=== PATIENT | female | born 1975 | race Caucasian/White ===

== ENCOUNTER 2017-04-29 09:51 | Outpatient (CLI) | payer MEDICAID ==
[~2017-04-29] VITALS: Ht 157.5 cm; Wt 73.6 kg
--- NOTE | ~2017-04-29 | OP ---
PATIENT NAME: MADHURI CHRISTIE MEDICAL RECORD: [id number] :[birth year] LOCATION:D.CAT ADMISSION DATE: SURGEON: TY VELAZQUEZ MD DATE OF OPERATION: 04/29/2017 PROCEDURES: 1. Left heart catheterization. 2. Selective coronary angiography. 3. Left ventriculogram. INDICATION: Chest pain compatible with angina. PROCEDURE IN DETAIL: After informed consent was obtained and after detailed explanation of risks, benefits as well as alternative therapies, the patient elected to proceed with angiogram and heart catheterization. The right femoral area was prepped and draped in normal sterile fashion. Right femoral artery was cannulated via modified Seldinger technique with placement of 6-Nauruan sheath. All catheters exchanged through this sheath. FINDINGS: The left ventriculogram was performed in the standard 30-degree DOLAN view reveals good cardiac wall motion throughout all segments. Overall ejection fraction estimated at 60%. SELECTIVE CORONARY ANGIOGRAPHY: Left main, left anterior descending, left circumflex and right coronary are all smooth-walled vessels with no angiographic evidence of coronary artery disease. OVERALL IMPRESSION: 1. No angiographic evidence of coronary artery disease. 2. Normal left heart pressures. 3. Normal left ventricular systolic function. Chest pain is noncardiac in etiology. No further cardiac workup needs to be ascertained. TRANSINT:[id number] Voice Confirmation ID: [id number] DOCUMENT ID: [id number] TY VELAZQUEZ MD at 1324 CC: [id number] DICTATION DATE: 04/29/17 1443 FLARE WORKER: 04/29/17 1501 DEP CLI 04/29/17 [id number] [place] [address]
--- NOTE | ~2017-04-29 | HEMODYNAMI ---
PATIENT:MADHURI CHRISTIE MEDICAL RECORD: [id number] : 79 LOCATION:DRoxanaCAT ADMISSION DATE: 04/29/17 Generatedon:04/29/201714:46 Patient name: MDAHURI CHRISTIE Patient #: [id number] SSN: D OB: 1975 Date of study: 04/29/2017 Page: Of Hemodynamic Procedure Report Patient Data Patient Demographics Procedure consent was obtained First Name: MADHURI Gender: Female Last Name: SHAHNAZ : 1975 Middle Initial: M Age: 41 year(s) Patient #: [id number] Race: Unknown Additional ID: [id number] Contact details Address: [address] [place] [address] State: [facility] Zip code: [address] Past Medical History Allergies Allergen Reaction Date Comments Reported Other allergy 04/29/2017 CEPHALEXIN, DOXYCYCLINE Admission Admission Data Admission Date: 04/29/2017 Admission Time: 9:51 Height (in.): 5.2 BSA: 0.29 (m2) Height (cm.): 13.21 BMI: 4160.18 (kg/m2) Weight (lbs.): 160 Weight (kg.): 72.57 Lab Results Lab Result Date: 04/29/2017 Lab Result Time: 0:00 Biochemistry Name Units Result Min Max BUN mg/dl 9 --(*---)-- 7 18 Creatinine mg/dl 0.6 --(*---)-- 0.6 1.3 CBC Name Units Result Min Max Hemoglobin g/dl 12.4 *-(----)-- 13.5 17.5 Procedure Procedure Types Cath Procedure Diagnostic Procedure C [facility] w/Coronaries Miscellaneous Procedures Moderate Sedation up to 15 minutes Procedure Description Procedure Date Procedure Date: 04/29/2017 Procedure Start Time: 14:31 Procedure End Time: 14:43 Procedure Staff Name Function Chrystal Kapadia RT Monitor Farhat Lyles MD Performing Physician Wali Currie RT Scrub Martin Velásquez RN Nurse Procedure Data Cath Procedure Fluoroscopy Diagnostic fluoroscopy Total fluoroscopy Time: 1.5 time: 1.5 min min Diagnostic fluoroscopy Total fluoroscopy dose: 68 dose: 68 mGy mGy Contrast Material Contrast Material Type Amount (ml) Isovue 300 47 Entry Location Entry Primary Successful Side Size Upsize Upsize Entry Closure Succes sful Closure Location (Fr) 1 (Fr) 2 (Fr) Remarks Device Remarks Radial Right 6 Fr artery Short Femoral Right 5 Fr Exoseal artery Estimated blood loss: 5 ml Diagnostic catheters Device Type Used For End Catheter Placement DIAGNOSTIC Firebaugh 110cm 5 Procedure Fr catheter ([id number]) MULTIPACK Pigtail 5 Fr Procedure catheter MULTIPACK JL 4.0 5Fr Procedure catheter MULTIPACK 3DRC 5Fr Procedure catheter Procedure Complications No complications Procedure Medications Medication Administration Route Dosage Oxygen NC 2 l/min 0.9% NaCl I.V. 100 ml/hr Heparin Flush Bag added to field 2 bags (1000units/500ml NS) Radial Cocktail added to field 1 syringe (Verapomil 2mg/Nitro 400mcg/Heparin 1500units) Fentanyl I.V. 50 mcg Versed I.V. 1 mg Fentanyl I.V. 50 mcg Versed I.V. 1 mg Fentanyl I.V. 50 mcg Versed I.V. 1 mg Radial Cocktail I.A. 1 syringe (Verapomil 2mg/Nitro 400mcg/Heparin 1500units) Fentanyl I.V. 50 mcg Versed I.V. 1 mg Fentanyl I.V. 50 mcg Hemodynamics Rest BSA: 0.29 (m2) HGB: 12.4 (g/dl) O2 Consumption: Estimated: 29.62 (ml/min) O2 Con sumption indexed: Estimated:102.14 (ml/min/m) Heart Rate: 70 (bpm) Snapshots Pre Cath Intra NCS Post Cath Vital Signs Time Heart Resp SPO2 etCO2 NIBP Rhythm Pain Sedation Rate (ipm) (%) (mmHg) (mmHg) Status Level (bpm) 14:15:55 65 13 98 0 116/74(92) NSR 0 (11) 10(A) , No pain 14:20:06 73 13 87 0 111/65(82) NSR 0 (11) 10(A) , No pain 14:24:18 62 16 96 30.8 104/65(82) NSR 0 (11) 10(A) , No pain 14:28:31 74 16 94 36.8 112/64(82) NSR 0 (11) 10(A) , No pain 14:32:43 74 17 96 41.4 96/60(74) NSR 0 (11) 9(A) , No pain 14:36:54 68 17 96 42.1 96/50(72) NSR 0 (11) 9(A) , No pain 14:41:02 74 19 96 48.1 97/56(76) NSR 0 (11) 10(A) , No pain Medications Time Medication Route Dose Verified Delivered Reason Notes Effectiveness by by 14:13:51 Oxygen NC 2 l/min Farhat Salazar Per Trupti Velásquez RN physician 14:14:06 0.9% NaCl I.V. 100 Farhat Martin Per ml/hr Trupti Velásquez RN physician 14:14:18 Heparin Flush added 2 bags Farhat Gonzalezy used for Bag to Trupti Velásquez RN procedure (1000units/500ml field NS) 14:14:27 Radial Cocktail added 1 Farhat Martin used for (Verapomil to syringe Trupti Velásquez RN procedure 2mg/Nitro field 400mcg/Heparin 1500units) 14:23:28 Fentanyl I.V. 50 mcg Farhat Martin for sedation Trupti Velásquez RN 14:23:35 Versed I.V. 1 mg Farhat Martin for sedation Trupti Velásquez RN 14:25:44 Fentanyl I.V. 50 mcg Farhat Martin for sedation Trupti Velásquez RN 14:25:50 Versed I.V. 1 mg Farhat Martin for sedation Trupti Velásquez RN 14:31:17 Fentanyl I.V. 50 mcg Farhat Martin for sedation Trupti Velásquez RN 14:31:19 Versed I.V. 1 mg Farhat Martin for sedation Trupti Velásquez RN 14:34:51 Radial Cocktail I.A. 1 Farhat Farhat for (Verapomil syringe Trupti Lyles MD vasodilation 2mg/Nitro 400mcg/Heparin 1500units) 14:36:20 Fentanyl I.V. 50 mcg Farhat Martin for sedation Trupti Velásquez RN 14:36:24 Versed I.V. 1 mg Farhat Martin for sedation Trupti Velásquez RN 14:37:38 Fentanyl I.V. 50 mcg Farhat Salazar for sedation Trupti Velásquez logistics lead Log Time Note 13:33:10 Time tracking: Regular hours 13:33:15 Plan of Care:Hemodynamics will remain stable., Cardiac rhythm will remain stable., Comfort level will be maintained., Respiratory function will remain adequate., Patient/ family verbilizes understanding of procedure., Procedure tolerated without complication., Recovers from procedure without complications.. 13:33:26 H&P Date Dictated: 04/26/2017 Within 30 days and on chart., H&P Addendum completed by physician on day of procedure. (MUST COMPLETE FOR ALL OUTPATIENTS). 13:33:54 Patient Height : 5.2 inches 13:33:57 Patient Weight : 160 lbs 13:34:25 Patient allergic to Other allergyCEPHALEXIN, DOXYCYCLINE 13:37:28 Lab Result : Creatinine 0.6 mg/dl 13:37:28 Lab Result : BUN 9 mg/dl 13:37:28 Lab Result : Hemoglobin 12.4 g/dl 13:50:37 Wali Currie RT(R) sent for patient. Start room use. 13:54:06 Patient not . Patient has had hysterectomy. 14:07:57 Patient received from Pre/Post Procedure Room to CCL 3 Alert and oriented. Tansferred to table in Supine position. 14:07:59 Warm blankets applied, and daksha hugger turned on for patient comfort. 14:07:59 Correct patient and procedure confirmed by team. 14:08:00 Signed procedure consent form obtained from patient. 14:08:02 ECG and BP/O2 sat monitors applied to patient. 14:10:02 Pre-procedure instructions explained to patient. 14:10:03 Pre-op teaching completed and patient verbalized understanding. 14:10:04 Family unavailable. 14:10:05 Patient NPO since Midnight. 14:10:07 Is the patient allergic to Iodine/contrast media? No. 14:10:08 Is patient on blood thinner?No 14:10:10 Patient diabetic? No. 14:10:13 Previous problem with sedation/anesthesia? No ? 14:10:15 Snore? Yes 14:10:16 Sleep apnea? No 14:10:16 Deviated septum? No 14:10:17 Opens mouth fully? Yes 14:10:18 Sticks out tongue? Yes 14:10:25 Airway obstruction? Yes Asthma 14:10:29 Dentures? Yes OUT 14:13:51 Oxygen 2 l/min NC was administered by Martin Velásquez RN; Per physician; 14:14:06 0.9% NaCl 100 ml/hr I.V. was administered by Martin Velásquez RN; Per physician; 14:14:18 Heparin Flush Bag (1000units/500ml NS) 2 bags added to field was administered by Martin Velásquez RN; used for procedure; 14:14:27 Radial Cocktail (Verapomil 2mg/Nitro 400mcg/Heparin 1500units) 1 syringe added to field was administered by Martin Velásquez RN; used for procedure; 14:14:48 Vital chart was started 14:18:46 Baseline sample Acquired. 14:18:53 Rhythm: sinus rhythm 14:18:54 Full Disclosure recording started 14:19:41 Modified Ke's test Ulnar < 7 seconds 14:19:49 Patient pain scale 0/10 ?. 14:19:57 IV patent on arrival in right antecubital with 0.9% NaCl at [facility]. 14:20:04 Lab results completed and on chart. 14:20:07 Right Radial & Right Groin area was prepped with chlora-prep and draped in sterile fashion 14:20:08 Alarms reviewed by R. N. 14:20:09 Sharps counted by scrub and verified by R.N. 14:23:05 --------ALL STOP TIME OUT------ 14:23:05 Final Timeout: patient, procedure, and site verified with staff and physician. All members of the team are in agreement. 14:23:07 Right Radial & Right Groin site verified by team. 14:23:11 Physical assessment completed. ASA score P 2 - A patient with mild systemic disease as per Farhat Lyles MD. 14:23:15 Sedation plan: IV Moderate Sedation Medication:Versed, Fentanyl 14:23:28 Fentanyl 50 mcg I.V. was administered by Martin Velásquez RN; for sedation; 14:23:35 Versed 1 mg I.V. was administered by Martin Velásquez RN; for sedation; 14:24:19 Use device set Radial Dx or PCI 14:24:20 ACIST Syringe (25814) opened to sterile field. 14:24:21 ACIST Hand Control (30032) opened to sterile field. 14:24:22 ACIST Manifold (95392) opened to sterile field. 14:24:22 Tegaderm 4 x 4 (1626W) opened to sterile field. 14:24:24 Bag Decanter (2001S) opened to sterile field. 14:24:26 Medline Cath Pack ([id number]) opened to sterile field. 14:24:28 MBrace Wrist Support ([id number]) opened to sterile field. 14:24:29 SHEATH 6FR Slender ([id number]) opened to sterile field. 14:24:29 DIAGNOSTIC WIRE .035 260cm J wire (295358) opened to sterile field. 14:25:44 Fentanyl 50 mcg I.V. was administered by Martin Velásquez RN; for sedation; 14:25:50 Versed 1 mg I.V. was administered by Martin Velásquez RN; for sedation; 14:28:39 Zero performed for pressure channel P1 14:28:53 Zero performed for pressure channel P1 14:30:55 Procedure started. 14:31:00 Local anesthetic to right radial artery with Lidocaine 2% by Farhat Lyles MD.INITIAL ACCESS ONLY 14:31:17 Fentanyl 50 mcg I.V. was administered by Martin Velásquez RN; for sedation; 14:31:19 Versed 1 mg I.V. was administered by Martin Velásquez RN; for sedation; 14:31:46 A 6 Fr Short sheath was inserted into the Right Radial artery 14:33:07 A DIAGNOSTIC Firebaugh 110cm 5 Fr catheter (204000) was advanced over the wire and used for Procedure. 14:33:50 Catheter removed. 14:34:01 unable to advance catheter. will go to groin 14:34:07 SHEATH 5FR [place] (HQB019) opened to sterile field. 14:34:35 Use device set Femoral Dx 14:34:51 Radial Cocktail (Verapomil 2mg/Nitro 400mcg/Heparin 1500units) 1 syringe I.A. was administered by Farhat Lyles MD; for vasodilation; 14:34:56 DIAGNOSTIC Multipack 5Fr catheter set ([id number]) opened to sterile field. 14:34:56 Tegaderm 4 x 4 (1626W) opened to sterile field. 14:35:13 PERCUTANEOUS ENTRY 19GA needle opened to sterile field. 14:35:15 Local anesthetic to right femoral artery with Lidocaine 2% by Farhat Lyles MD.ADDITIONAL ACCESS 14:35:22 A 5 Fr sheath was inserted into the Right Femoral artery 14:35:37 A MULTIPACK Pigtail 5 Fr catheter was advanced over the wire and used for Procedure. 14:35:44 Injector settings: Ml/sec: 10, Volume: 20, 14:35:47 LV gram done using DOLAN 14:36:09 EF : 50 % 14:36:14 Catheter removed. 14:36:20 Fentanyl 50 mcg I.V. was administered by Martin Velásquez RN; for sedation; 14:36:24 Versed 1 mg I.V. was administered by Martin Velásquez RN; for sedation; 14:36:29 A MULTIPACK JL 4.0 5Fr catheter was advanced over the wire and used for Procedure. 14:36:59 LCA angiography performed. 14:37:26 Catheter removed. 14:37:37 A MULTIPACK 3DRC 5Fr catheter was advanced over the wire and used for Procedure. 14:37:38 Fentanyl 50 mcg I.V. was administered by Martin Velásquez RN; for sedation; 14:38:14 RCA angiography performed. 14:38:16 Catheter removed. 14:38:20 EXOSEAL 5Fr (EX500) opened to sterile field. 14:39:28 Sheath removed intact; hemostasis achieved with Exoseal to the Right Femoral artery. 14:39:31 Procedure ended.(Physican Out) 14:39:37 TR BAND Standard ([id number]) opened to sterile field. 14:39:46 Fluoroscopy time 01.50 minutes. 14:39:52 Fluoroscopy dose: 68 mGy 14:39:52 Flurop Dose total: 68 14:39:56 Contrast amount:Isovue 300 47ml. 14:39:58 Sharps counted by scrub and verified by R.N. 14:40:02 TR band inflated with 10cc of air. 14:40:41 Post-op/insertion site Right Femoral artery dressed using a 4 x 4 and Tegaderm. 14:40:44 Post right femoral artery:stable, soft, clean and dry 14:40:51 Post procedure rhythm: unchanged. 14:40:53 Estimated blood loss: 5 ml 14:40:54 Post procedure instruction explained to patient.Patient verbalizes understanding. 14:40:56 Patient needs reinforcement of post procedure teaching. 14:43:26 Procedure and supply charges have been captured, reviewed, submitted and are correct. 14:43:30 Procedure Complication : No complications 14:43:33 Vital chart was stopped 14:43:33 See physician's report for complete and final results. 14:43:35 Report given to Pre/Post Procedure Room. 14:43:39 Patient transfered to Pre/Post Procedure Room with Bed. 14:43:41 Procedure ended. 14:43:41 Full Disclosure recording stopped 14:43:48 End room use (Document Last) Device Usage Item Name Manufacture Quantity Catalog Hospital Part Current Minima l Lot# / Number Charge Number Stock Stock Serial# Code ACIST Acist 1 07715 141704 342326 513548 20 Syringe Medical (64803) Systems Inc ACIST Hand Acist 1 53350 274213 691551 102048 5 Control Medical (13827) Systems Inc ACIST Acist 1 07193 191616 105718 299104 5 Manifold Medical (31758) Systems Inc Tegaderm 4 x 3M 2 1626W 083771 521801 206758 5 4 (1626W) Bag Decanter Microtek 1 2002S 397710 21815 824190 5 (2001S) Medical Inc. Medline Cath Cardinal 1 [id number] 917183 06166 572567 5 LightSand Communications ([id number]) MBrace Wrist Advanced 1 140-0250-00 965355 18639 311714 5 Support Vascular ([id number]) Dynamics SHEATH 6FR Terumo 1 [id number] 921833 817915 341431 40 Slender ([id number]) DIAGNOSTIC St Narciso 1 425273 080037 277206 980681 30 WIRE .035 260cm J wire (846606) DIAGNOSTIC Terumo 1 40-9589 672688 991586 397667 5 Firebaugh 110cm 5 Fr catheter (796078) SHEATH 5FR Terumo 1 KEP201 814296 940256 523122 40 [place] (GKE247) DIAGNOSTIC Cardinal 1 NY0608 466988 60648 683113 30 MovieSet 5Fr catheter set (AT7005) PERCUTANEOUS [facility] 1 K33929 855561 651654 5 ENTRY 19GA needle MULTIPACK Cardinal 1 153658 5 Pigtail 5 Fr Health catheter MULTIPACK JL Cardinal 1 015274 5 4.0 5Fr Health catheter MULTIPACK Cardinal 1 723247 5 3DRC 5Fr Health catheter TR BAND Terumo 1 [id number] 873512 121409 286238 40 Standard ([id number]) EXOSEAL 5Fr Cardinal 1 EX500 008945 793510 049358 10 (EX500) Health Signature Audit [place] Stage Time Signature Unsigned Intra-Procedure 04/29/2017 Chrystal Kapadia 2:46:01 PM RT(R) Signatures Monitor : Chrystal Kapadia Signature : RT Date : Time : [address] [address]
[2017-04-29] MEDS ORDERED: BUTALB-APAP-CA1 EACH PO (10:26)
[2017-04-29] MEDS ORDERED: MAXALT10 MG PO (10:26)
[2017-04-29] MEDS ORDERED: PHENERGAN25 M1 PO (10:27)
[2017-04-29] MEDS ORDERED: NITROSTAT0.4 MG SL (10:27)
[2017-04-29] MEDS ORDERED: ATIVAN1 MG PO (10:27)
[2017-04-29] MEDS ORDERED: COREG 3.1253.125 MG PO (10:28)
[2017-04-29] MEDS ORDERED: ROBAXIN-750750 MG PO (10:28)
[2017-04-29] MEDS ORDERED: MECLIZINE HCL25 MG PO (10:28)
[2017-04-29] MEDS ORDERED: LIPITOR80 MG PO (10:29)
[2017-04-29] MEDS ORDERED: ISOSORBIDE MONO30 M1 PO (10:29)
[2017-04-29] MEDS ORDERED: ASPIRIN EC81 M1 PO (10:29)
[2017-04-29] MEDS ORDERED: AMBIEN10 MG PO (10:30)
[2017-04-29] MEDS ORDERED: ULTRAM50 MG PO (10:30)
[2017-04-29] MEDS ORDERED: PROTONIX40 MG PO (10:31)
[2017-04-29] MEDS ORDERED: VOLTAREN75 MG PO (10:31)
[2017-04-29] MEDS ORDERED: NEURONTIN600 MG PO (10:32)
[2017-04-29] MEDS ORDERED: VENTOLIN HFA18 GM INH (10:33)
[2017-04-29] MEDS ORDERED: SYMBICORT 16010.2 GM INH (10:33)
[2017-04-29 10:42] VITALS: BP 122/75; Ht 157.5 cm; Wt 73.6 kg
[2017-04-29 10:53] LABS: BASOPHILS 0.3 % (0-2); EOSINOPHILS 1.6 % (0-7); HEMATOCRIT 36.7 % (36.0-48.0); HEMOGLOBIN 12.4 g/dL (12-16); IMMATURE GRANULOCYTES 0.1 % (0-5); LYMPHOCYTES 38.8 % (15-50); MCHC 33.8 g/dL (31.0-37.0); MCV 94.6 fL (80.0-100.0); MEAN PLATELET VOLUME 10.5 fL (7.4-10.4); MONOCYTES 6.5 % (2-11); NEUTROPHILS 52.7 % (40-80); PLATELET COUNT 216 10x3/uL (130-400); RBC 3.88 10x6/uL (4.00-5.40); RDW 13.2 % (11.5-14.5)
[2017-04-29 11:05] LABS: CALC OSMOLALITY 276 mosm/kg (275-300); CALCIUM 8.9 mg/dL (8.5-10.1); CARBON DIOXIDE 21.8 mmol/L (21.0-32.0); CHLORIDE - SERUM 104 mmol/L (98-107); CREATININE - SERUM 0.6 mg/dL (0.6-1.3); GLUCOSE 76 mg/dL (74-106); POTASSIUM - SERUM 4.3 mmol/L (3.5-5.1); SODIUM 140 mmol/L (136-145); UREA NITROGEN 9 mg/dL (7-18); eGFR NON AFRICAN AMERICAN > 90 mL/min (90-120)
== END 2017-04-29 16:45 | disposition home or self-care (01) ==
LOC: D.CATH 09:51
PROVIDERS: Internal Medicine Interventional Cardiology
DX: R07.89 Other chest pain (principal); Z01.812 Encounter for preprocedural laboratory examination